=== PATIENT | female | born 1980 | race Caucasian/White ===

== ENCOUNTER → 2016-08-10 | Outpatient (CLI) | payer BC, OTHER ==
[~2016-08-10] MED LIST: LEVO50TA6 PO; NORE1TAB3 PO; SERT1TAB71 PO; TRAZ100T29 PO
== END | disposition home or self-care (01) ==
LOC: C.PAPS 10:01
PROVIDERS: ATTEND Physician Assistant
DX: Z01.419 Encounter for gynecological examination (general) (routine) without abnormal findings (principal)